=== PATIENT | female | born 1985 | race Caucasian/White ===

== ENCOUNTER 2019-12-02 08:48 | Day surgery (SDC) | payer MEDICAID ==
[2019-11-29 12:30] LABS: MEAN CORPUSCULAR HEMOGLOBIN 30.4 pg (27.0-33.4); MEAN CORPUSCULAR VOLUME 90 fl (80-97); RED BLOOD COUNT 4.91 10^6/uL (3.72-5.28); RED CELL DISTRIBUTION WIDTH 13.3 % (11.5-14.0); WHITE BLOOD COUNT 13.1 10^3/uL (4.0-10.5)
[2019-11-29 12:33] LABS: HEMATOCRIT 44.4 % (36.0-47.0)
[2019-11-29 12:37] LABS: APPEARANCE,URINE CLEAR; BILIRUBIN,URINE NEGATIVE (NEGATIVE); COLOR,URINE STRAW; GLUCOSE, URINE NEGATIVE (NEGATIVE); KETONES,URINE NEGATIVE (NEGATIVE); LEUKOCYTE ESTERASE,URINE NEGATIVE (NEGATIVE); NITRITE,URINE NEGATIVE (NEGATIVE); PROTEIN,URINE NEGATIVE (NEGATIVE); UROBILINOGEN,URINE NEGATIVE mg/dL (<2.0)
[2019-11-29 13:28] LABS: PLATELET COUNT 349 10^3/uL (150-450)
[~2019-12-02 08:48] MED LIST: LACTATED RINGERS 1000 ML IV PRN
[2019-12-02] MEDS ORDERED: KETOROLAC TROMETHAMINE 60 MG/2 ML SDV ONE (11:15)
[2019-12-02] MEDS ORDERED: FENTANYL CITRATE INJ/PF 100 MCG/2 ML AMPUL ONE (11:15)
[2019-12-02] MEDS ORDERED: MIDAZOLAM 2 MG/2 ML INJ ONE (11:15)
[2019-12-02] MEDS ORDERED: PROPOFOL INJ 200 MG/20 ML VIAL IV ONE ×2 (11:16→12:12)
[2019-12-02] MEDS ORDERED: RINGERS SOLUTION,LACTATED 1,000 ML IV PRN (11:52)
[2019-12-02] MEDS ORDERED: IBUPROFEN 800 MG TABLET PO PRN (11:52)
[2019-12-02] MEDS ORDERED: OXYCODONE-ACETAMINOPHEN 5-325 MG TABLET PO PRN ×3 (11:52→11:59)
[2019-12-02] MEDS ORDERED: KETOROLAC TROMETHAMINE INJ/PF 30 MG/1 ML SDV IV PRN (11:52)
[2019-12-02] MEDS ORDERED: DIPHENHYDRAMINE HCL 50 MG/ML VIAL IV PRN (11:59)
[2019-12-02] MEDS ORDERED: FENTANYL CITRATE INJ/PF 100 MCG/2 ML AMPUL IV PRN (11:59)
[2019-12-02] MEDS ORDERED: MORPHINE SULFATE 10 MG/ML INJ IV PRN (11:59)
[2019-12-02] MEDS ORDERED: PROMETHAZINE HCL INJ 25 MG/1 ML VIAL IV PRN (11:59)
[2019-12-02] MEDS: FENTANYL CITRATE INJ/PF 100 MCG/2 ML AMPUL ONE ×2 (12:04→12:09)
[2019-12-02] MEDS ORDERED: OXYCODONE-ACETAMINOPHEN 5-325 MG TABLET ONE (12:48)
[2019-12-02 14:44] VITALS: BP 107/52
--- NOTE | 2019-12-09 10:48 | Operative Report ---
Operative Report DATE OF SURGERY: 12/02/19 PREOPERATIVE DIAGNOSIS: Heavy menses POSTOPERATIVE DIAGNOSIS: Same OPERATION: Hysteroscopy D&C with endometrial ablation SURGEON: PEGGY CROWDER ANESTHESIA: GA TISSUE REMOVED OR ALTERED: Uterine contents COMPLICATIONS: None ESTIMATED BLOOD LOSS: 10 cc INTRAOPERATIVE FINDINGS: Uterine cavity length is 4 cm width is 3 cm time of ablation is 1 minute 57 seconds PROCEDURE: Patient was taken the OR and placed in supine position. General anesthesia was induced. She is placed in dorsolithotomy position using Farhat stirrups. Her perineum and vagina were prepared and draped sterile fashion. Her bladder was drained with a red rubber catheter. A weighted speculum was placed in the vagina and the anterior lip cervix was grasped with a tenaculum. Uterus sounded to 8 cm. The cervix was gently dilated up to a size 8. Hysteroscopy was performed and revealed a rather short 4 cm uterine cavity with no abnormalities. Both tubal ostia could be seen. A D&C was completed and specimen sent. The NovaSure device was placed tested and fired without incident. All instruments were removed at the end of the case. She is placed back in supine position brought out of anesthesia and returned to recovery.
--- NOTE | 2019-12-09 10:58 | Discharge Summary ---
Discharge Summary (SDC) - Discharge Final Diagnosis: heavy menses Date of Surgery: 12/02/19 Forms: ASU Anesthesia D/C Instruction, Discharge POC-Surgical Service Treatment or Instructions: MONITOR FOR BLEEDING MORE THAN 1 PAD IN AN HOUR, MONITOR FOR FEVER 101F OR GREATER, NO TUB BATHS OR SWIMMING, PELVIC REST, FOLLOW UP WITH YOUR DOCTOR, TAKE MEDICATION PRESCRIBED Referrals: PEGGY CROWDER MD [ACTIVE STAFF] - Discharge Diet: Regular Respiratory Treatments at Home: Deep Breathing/Coughing Discharge Activity: Activity As Tolerated, Balance Activity w/Rest, No Driving, No Lifting Over 10 Pounds, No Lifting/Push/Pulling, Pelvic Rest, Slowly Increase Activity, No tub bath Home Care Assistance: None Needed Report the Following to Your Physician Immediately: Shortness of Breath, Nausea, Vomiting, Increase in Pain, Fever over 101 Degrees, Unusual Bleeding, Redness, Warmth, Large Clots, Numbness
== END 2019-12-02 14:00 | disposition home or self-care (01) ==
LOC: OROUT 08:48
PROVIDERS: ATTEND Obstetrics & Gynecology
DX: N92.0 Excessive and frequent menstruation with regular cycle (principal); N93.9 Abnormal uterine and vaginal bleeding, unspecified; Z03.818 Encounter for observation for suspected exposure to other biological agents ruled out; F17.210 Nicotine dependence, cigarettes, uncomplicated; Z98.51 Tubal ligation status
CPT/HCPCS: 36415; 85027; 87635; 81025; 81001; 88305 ×2; 00952; 58563; J2250; J1885; J3010; J2704; C9803; 952